=== PATIENT | female | born 1980 | race Caucasian/White ===

== ENCOUNTER → 2017-02-13 | Outpatient (CLI) | payer OTHER ==
[~2017-02-13] MED LIST: FERRTAB2 PO; PREN1CAP33 PO
== END ==
LOC: HPND 08:31
PROVIDERS: ATTEND Obstetrics & Gynecology
DX: O09.522 Supervision of elderly multigravida, second trimester (principal); O09.292 Supervision of pregnancy with other poor reproductive or obstetric history, second trimester
CPT/HCPCS: 76811

== ENCOUNTER 2017-07-03 09:11 | Inpatient (IN) | payer OTHER ==
[~2017-07-03] VITALS: Ht 167.6 cm; Wt 66.0 kg
[2017-07-03] VITALS (19 sets, daily range): BP systolic 100–128; BP diastolic 58–78; PULSE 17–97; RESP 16–20; TEMP 97.6–98.1; O2SAT 99–100
[2017-07-03 10:04] LABS: AUTOMATED NEUTROPHIL # 11.1 TH/MM3 (1.8-7.7); BASOPHIL % 0.4 % (0.0-2.0); EOSINOPHIL % 0.4 % (0.0-4.0); HEMATOCRIT 37.6 % (35.0-46.0); LYMPH % 10.7 % (9.0-44.0); LYMPHOCYTE # 1.4 TH/MM3 (1.0-4.8); MEAN CELL VOLUME 93.5 FL (80.0-100.0); MEAN CORPUSCULAR HEMOGLOBIN 32.3 PG (27.0-34.0); MEAN CORPUSCULAR HGB CONC 34.5 % (32.0-36.0); MEAN PLATELET VOLUME 7.4 FL (7.0-11.0); MONO % 4.9 % (0.0-8.0); MONOCYTE # 0.6 TH/MM3 (0-0.9); NEUT % 83.6 % (16.0-70.0); PLATELET COUNT 223 TH/MM3 (150-450); RED BLOOD COUNT 4.03 MIL/MM3 (4.00-5.30); RED CELL DISTRIBUTION WIDTH 13.6 % (11.6-17.2); WHITE BLOOD COUNT 13.2 TH/MM3 (4.0-11.0)
[2017-07-03 10:10] LABS: BACTERIA, URINE RARE /hpf; BILIRUBIN, URINE NEG (NEG); BLOOD, URINE NEG (NEG); GLUCOSE,URINE NEG (NEG); KETONE, URINE 40 mg/dL (NEG); NITRITE,URINE NEG (NEG); PH, URINE 6.5 (5.0-8.5); SQUAMOUS EPITHELIAL CELL URINE 2 /hpf (0-5); URINE COLOR YELLOW (YELLW/STRAW); URINE LEUKOCYTE ESTERASE NEG (NEG)
[2017-07-03] MEDS ORDERED: CITRIC ACID-SODIUM CITRATE LIQ 30 ML UDC PO SCH (10:15)
[2017-07-03] MEDS ORDERED: ceFAZolin 1,000 MG/NS 100 ML IV SCH ×2 (10:15)
[2017-07-03] MEDS ORDERED: LACTATED RINGER'S 1000 ML IV ONE (10:30)
[2017-07-03] MEDS ORDERED: MORPHINE SULFATE PF 5 MG/10 ML VIAL ONE (10:53)
[2017-07-03] MEDS ORDERED: ACETAMINOPHEN 1000 MG/100 ML 100 ML IV ONE (10:53)
[2017-07-03] MEDS ORDERED: LACTATED RINGER'S 1000 ML IV SCH (11:00)
[2017-07-03] MEDS ORDERED: OXYTOCIN 10 UNIT/ML AMP IV ONE (12:00)
[2017-07-03] MEDS ORDERED: DEXAMETHASONE SOD PHOS 4 MG/ML VIAL IV ONE (12:00)
[2017-07-03] MEDS ORDERED: ONDANSETRON HCL 4 MG/2 ML VIAL IV ONE (12:00)
[2017-07-03] MEDS ORDERED: PHENYLEPH/NS 1000 MCG/10 ML SYR IV ONE (12:00)
--- NOTE | 2017-07-03 12:12 | PD.OB.DELI ---
Procedure Note Section Procedure Performed by Mik Lowe Procedure: Repeat Low Transverse Sec Indication for delivery: Desired elective repeat Informed consent obtained: For anesthesia, For procedure Confirmed correct: Patient, Procedure, Site, Time-out taken Anesthesia: Spinal Medication prior to procedure: As documented in eMAR Monitoring during procedure: Blood pressure monitoring, court monitor, doppler, Pulse oximetry Urinary catheter: Inserted using sterile technique, To dependent drainage Sterile preparation: Duraprep, In usual fashion Position: Supine with wedge to right side, Supine with safety belt applied Operative Features Skin Incision: Pfannenstiel Uterine Incision: Low transverse w/knife / blunt ext Membranes Ruptured: Artificially Presentation: Occiput anterior Delivery date: Jul 03, 2017 Delivery time: 11:23 Delivery of : Uneventful : Male One Minute : 9 Five Minute : 9 Weight: 8/4 Status of infant: Viable Placenta delivered: Intact Medications: Antibiotics, Oxytocin Estimated blood loss: 600cc Procedure tolerated: Well Maternal Condition: Stable Condition: Stable Mik Lowe MD Jul 03, 2017 12:12
[2017-07-03] MEDS ORDERED: OXYTOCIN 30 UNITS-500ML PREMIX 500 ML IV ONE (12:15)
[2017-07-03] MEDS ORDERED: SODIUM CHLORIDE 0.9% FLUSH 10 ML FLUSH IV FLUSH PRN (12:15)
[2017-07-03] MEDS ORDERED: oxyCODONE/ACETAMINOPHEN 5 MG/325 MG TAB PO PRN (12:15)
[2017-07-03] MEDS ORDERED: DOCUSATE SODIUM 50 MG/SENNA 8.6 MG TAB PO PRN (12:15)
[2017-07-03] MEDS ORDERED: ACETAMINOPHEN 325 MG TAB PO PRN (12:15)
[2017-07-03] MEDS ORDERED: SIMETHICONE 80 MG CHEWABLE TAB PO PRN (12:15)
[2017-07-03] MEDS ORDERED: OXYTOCIN 30 UNITS-500ML PREMIX 500 ML ONE ×2 (12:33→13:30)
--- NOTE | 2017-07-03 12:48 | MP ---
cc: Mik Lowe MD DATE OF OPERATION: 07/03/2017 PREOPERATIVE DIAGNOSIS: Term intrauterine gestation, history of gestational diabetes, diet controlled, previous section, for elective repeat section and sterilization with tubal ligation. PROCEDURE: Repeat low transverse section, bilateral tubal ligation and delivery of viable male infant. POSTOPERATIVE DIAGNOSIS: Term intrauterine gestation, history of gestational diabetes, diet controlled, previous section, for elective repeat section and sterilization with tubal ligation. SURGEON: Mik Lowe MD ANESTHESIA: Spinal. ESTIMATED BLOOD LOSS: 600 mL DRAINS: [place] to gravity. OPERATIVE FINDINGS: Male infant delivered from LOT position, clear fluid, Apgars were 9 at one minute and 9 at five. Baby weighed 8 pounds 4 ounces. INDICATION FOR PROCEDURE: Previous section, elected for repeat. Also, was consented and agree for sterilization by tubal ligation. The patient received Ancef 1 g prophylactically. DESCRIPTION OF PROCEDURE: She was taken to the operating room in stable condition and underwent spinal anesthetic without complication. She was prepped and draped. Sequentials were placed on lower extremities for VTE prophylaxis. A [place] was placed under sterile technique. Timeout was conducted, agreed by all present in the room. The patient was stable. heart tones were documented. The patient had previous Pfannenstiel incision that was utilized. Again, she had good pain management with a spinal. The incision was made through the skin down through the subcutaneous layer into the level of the fascia, which was scored sharply in the midline and dissected sharply away from the rectus muscle. Any active bleeding was cauterized with the Bovie. The rectus muscle was in the midline. Peritoneum was identified and opened sharply. The uterus was examined. Vertex presentation was identified. A transverse incision was made in the lower uterine segment without difficulty. Clear fluid was noted. The incision was extended and then the was delivered head first with oropharyngeal suction performed. was delivered in total with good tone and cry. The cord was doubly clamped and cut and the infant was taken to [place] by the nursing staff. Placenta was removed after obtaining a cord blood sample. Uterus was explored. No retained tissue. Good contractions were noted. Blood loss was average. The uterus was closed with a double layer using 0 Monocryl using a running locking suture, followed by a second imbricating suture and then, examination of the fallopian tubes and adnexa was normal. The fallopian tubes were elevated using a Jabier clamp and then opening the mesentery in a hemostatic fashion with the Bovie and then, placing a 2-0 plain suture proximally and distally to excise the mid isthmic portion of the tube. This was taken from close proximity to the cornua down to almost the ampullary portion of each tube. Tubes were labeled right and left. The remaining portion of the tube was cauterized at the luminal surface. No active bleeding or hematoma was incurred. The uterus was returned to its normal anatomic position in the pelvis. Examination of the gutters and pelvis were dry. The lower uterine incision was clean without hematoma formation. Full count was made correct. The peritoneum was then closed with a 2-0 running Monocryl, followed by a second imbricating suture of 2-0 Monocryl in the muscle bellies. The fascia was then closed with 0 Vicryl in a simple running fashion. The skin, after closing the subcutaneous layer with a running suture of 2-0 Monocryl, was closed with 0 Stratafix closing the skin. Steri-Strips were applied over the incision. Dressing was applied. Good result was noted. At the end of the case, final count was correct. The patient was stable. She was taken to recovery on room air. Infant was doing well in the recovery room, as well. MD VENANCIO Cox/AURY , 12:16 PM , 12:46 PM
[2017-07-03] MEDS ORDERED: EPIDURAL-NO SYSTEMIC NARCOTICS PRN ×2 (13:00→16:30)
[2017-07-03] MEDS ORDERED: EPIDURAL-DIPHENHYDRAMINE HCL 50 MG/ML VIAL IV PUSH PRN ×2 (13:00→16:30)
[2017-07-03] MEDS ORDERED: EPIDURAL-DO NOT ADMINISTER ANTICOAGULANTS PRN ×2 (13:00→16:30)
[2017-07-03] MEDS ORDERED: EPIDURAL-DIPHENHYDRAMINE HCL 50 MG CAP PO PRN ×2 (13:00→16:30)
[2017-07-03] MEDS ORDERED: EPIDURAL-NALOXONE HCL 0.4 MG/ML AMP IV PUSH PRN ×2 (13:00→16:30)
[2017-07-03] MEDS ORDERED: METHYLERGONOVINE MALEATE 0.2 MG/ML VIAL ONE (13:16)
[2017-07-03] MEDS: ONDANSETRON HCL 4 MG/2 ML VIAL IV PUSH PRN ×2 (13:46→21:40)
[2017-07-03] MEDS ORDERED: ONDANSETRON HCL 4 MG/2 ML VIAL ONE (13:46)
[2017-07-03] MEDS ORDERED: METHYLERGONOVINE MALEATE 0.2 MG/ML VIAL IM ONE (14:15)
[2017-07-03] MEDS: KETOROLAC TROMETHAMINE 60 MG/2 ML (IM) VIAL IM PRN (15:01)
[2017-07-03] MEDS ORDERED: PROMETHAZINE INJ 25 MG/ML VIAL IM ONE (15:45)
[2017-07-03] MEDS ORDERED: LACTATED RINGER'S 1000 ML INJ 1,000 ML IV SCH (17:09)
[2017-07-03] MEDS: SODIUM CHLORIDE 0.9% FLUSH 10 ML FLUSH IV FLUSH SCH (21:00)
[2017-07-03] MEDS ORDERED: PROMETHAZINE INJ 25 MG/ML VIAL IM PRN (22:00)
[2017-07-03] MEDS ORDERED: OXYTOCIN 30 UNITS-500ML PREMIX 500 ML IV PRN (22:15)
[2017-07-04] VITALS (8 sets, daily range): BP systolic 98–120; BP diastolic 59–82; PULSE 69–89; RESP 16–18; TEMP 97.8–98.2
[2017-07-04] MEDS: KETOROLAC TROMETHAMINE 60 MG/2 ML (IM) VIAL IM PRN (01:14)
--- NOTE | 2017-07-04 08:56 | HHI.OB ---
Subjective Post Operative Day: 1 Objective Vitals/I&O Vital Signs Date Time Temp Pulse Resp B/P (MAP) Pulse Ox O2 Delivery O2 Flow Rate FiO2 07/04/17 06:00 18 07/04/17 04:06 98.2 74 18 117/60 (79) 07/04/17 01:14 18 07/04/17 00:30 18 07/04/17 00:01 98.2 81 17 102/59 (73) 07/03/17 22:50 18 07/03/17 21:46 17 07/03/17 21:34 97.6 75 18 112/73 (86) 07/03/17 17:55 98.1 81 18 121/78 (92) 07/03/17 14:30 98.1 75 18 128/63 (84) 07/03/17 13:45 83 18 123/71 (88) 100 07/03/17 13:30 80 18 118/61 (80) 99 07/03/17 13:15 80 18 100 07/03/17 13:00 72 18 100/59 (73) 99 07/03/17 12:45 75 16 112/59 (76) 99 07/03/17 12:30 79 18 113/58 (76) 99 07/03/17 12:15 98.1 07/03/17 12:15 79 20 100 07/03/17 12:15 110/60 (77) 07/03/17 09:55 94 07/03/17 09:50 97 07/03/17 09:45 90 07/03/17 09:44 87 116/77 (90) 07/03/17 09:40 94 07/03/17 09:35 95 07/03/17 09:30 95 Result Diagram: 07/03/17 0940 Objective Remarks GENERAL: Well-nourished, well-developed patient. CARDIOVASCULAR: Regular rate and rhythm without murmurs, gallops, or rubs. RESPIRATORY: Breath sounds equal bilaterally. No accessory muscle use. ABDOMEN/GI: Abdomen soft, non-tender, bowel sounds present. Incision: dressing Clean, dry and intact. Fundus: Firm, non-tender at umbilicus. GENITOURINARY: Light to moderate bleeding. EXTREMITIES: No cyanosis or edema, non-tender, without signs of DVT. Medications and IVs Current Medications Medications (Trade) Dose Ordered Sig/Lucrecia Route Start Time Stop Time Status Last Admin (Bicitra Liq) 30 ml SPLITTING MACHINE FEEDER PO 07/03/17 10:15 07/06/17 10:14 07/03/17 10:46 Cefazolin Sodium 1000 mg/Sodium Chloride 100 ml @ 200 mls/hr SPLITTING MACHINE FEEDER IV 07/03/17 10:15 07/06/17 10:14 07/03/17 10:46 Lactated Ringer's 1,000 ml @ 100 mls/hr Q10H IV 07/03/17 17:09 07/04/17 13:08 07/03/17 20:39 Oxytocin 500 ml @ 100 mls/hr UNSCH X1 PRN IV 07/03/17 22:15 07/04/17 22:14 (NS Flush) 2 ml BID IV FLUSH 07/03/17 12:15 (NS Flush) 2 ml UNSCH PRN IV FLUSH 07/03/17 12:15 (Mylicon Chew) 80 mg QID PRN PO 07/03/17 12:15 (Tylenol) 650 mg Q6H PRN PO 07/03/17 12:15 (Motrin) 600 mg Q6H PRN PO 07/03/17 12:15 (Toradol Inj) 30 mg Q6H PRN IM 07/03/17 12:15 07/04/17 12:14 07/04/17 01:14 (Percocet 5-325 Mg) 1 tab Q4H PRN PO 07/03/17 12:15 (Percocet 5-325 Mg) 2 tab Q4H PRN PO 07/03/17 12:15 (Mary-Colace) 2 tab Q12H PRN PO 07/03/17 12:15 (M-M-R Ii Inj) 0.5 ml ONCE ONCE SQ 07/04/17 16:00 07/04/17 16:01 (Boostrix Inj) 0.5 ml ONCE ONCE IM 07/04/17 16:00 07/04/17 16:01 07/03/17 21:46 (Zofran Inj) 4 mg Q6H PRN IV PUSH 07/03/17 12:15 07/03/17 21:40 Miscellaneous Information NO SYSTEMIC NARCOTICS TO BE GIVEN FO... UNSCH PRN .XX 07/03/17 13:00 07/04/17 12:59 (Narcan Inj) 0.4 mg UNSCH PRN IV PUSH 07/03/17 13:00 07/04/17 12:59 (Benadryl Inj) 25 mg Q6H PRN IV PUSH 07/03/17 13:00 07/04/17 12:59 (Benadryl) 50 mg Q6H PRN PO 07/03/17 13:00 07/04/17 12:59 Miscellaneous Information ALL NURSING DEPARTMENTS UNSCH PRN .XX 07/03/17 13:00 07/04/17 12:59 Miscellaneous Information NO SYSTEMIC NARCOTICS TO BE GIVEN FO... UNSCH PRN .XX 07/03/17 16:30 07/04/17 16:29 (Narcan Inj) 0.4 mg UNSCH PRN IV PUSH 07/03/17 16:30 07/04/17 16:29 (Benadryl Inj) 25 mg Q6H PRN IV PUSH 07/03/17 16:30 07/04/17 16:29 (Benadryl) 50 mg Q6H PRN PO 07/03/17 16:30 07/04/17 16:29 Miscellaneous Information ALL NURSING DEPARTMENTS UNSCH PRN .XX 07/03/17 16:30 07/04/17 16:29 Assessment/Plan Problem List: (1) delivery delivered ICD Codes: O82 - Encounter for delivery without indication Assessment and Plan POD 1 s/p rltcd and btl cont routine supportive care Dispo- home pod 2 or 3 Shellie Saab MD Jul 04, 2017 08:56
[2017-07-04] MEDS: SODIUM CHLORIDE 0.9% FLUSH 10 ML FLUSH IV FLUSH SCH ×2 (09:35→21:00)
[2017-07-04] MEDS: IBUPROFEN 600 MG TAB PO PRN ×2 (09:55→17:41)
--- NOTE | 2017-07-04 12:40 | MH ---
cc: Mik Lowe MD DATE OF ADMISSION: 07/03/2017 HISTORY OF PRESENT ILLNESS: This is a 37-year-old female, 2, para 1, estimated date of confinement 07/07/2017 based on last menstrual period and first trimester ultrasound. The patient has a history of previous section for breech in 2013, had elected for repeat section with tubal ligation this . The patient's significant issues related to the , the patient history of gestational diabetes, controlled by diet, with normal glycemic control during the . The patient's group B strep status is negative. The patient's blood type is A positive. PAST MEDICAL HISTORY: Denies any systemic or chronic disease. ALLERGIES: SHE HAS NO KNOWN DRUG ALLERGIES. PAST SURGICAL HISTORY: Includes section in 2013. FAMILY HISTORY: Noncontributory. SOCIAL HISTORY: The patient is , fully employed. Denies use of alcohol, tobacco or illicit substances. PHYSICAL EXAMINATION: GENERAL: The patient is a well appearing, well nourished female, in no acute distress. VITAL SIGNS: Stable. Blood pressure is 110/60, pulse and respiratory rate are normal. heart tones are in the 140s. HEENT: Shows no adenopathy. NECK: Supple. Full range of motion. Pupils are equally round and reactive to light. Sclerae are clear, white. LUNGS: Clear in all jack. CARDIOVASCULAR: Regular rhythm, without murmur, rub or gallop. ABDOMEN: Gravid full-term, measuring 40 weeks. EXTREMITIES: Symmetrical. She has 1+ edema. Full range of motion. There is no cyanosis, clubbing, or edema. NEUROLOGIC: Grossly intact, nonfocal. ASSESSMENT AND PLAN: The patient is 39 weeks gestation, previous section for elective repeat section and tubal ligation, history of gestational diabetes, well controlled. Group B strep status negative. Uncomplicated medical history. Mik Lowe MD [facility] [place] [facility] [place] , 05:18 PM , 05:32 PM
[2017-07-04] MEDS: oxyCODONE/ACETAMINOPHEN 5 MG/325 MG TAB PO PRN (12:42)
[2017-07-04] MEDS ORDERED: DIPHTH/TETANUS/ACEL PERTUSSIS (BOOSTER) 0.5 ML VIAL/PFS IM ONE (16:00)
[2017-07-04] MEDS ORDERED: MEASLES, MUMPS, RUBELLA VACCINE 0.5 ML VIAL SQ ONE (16:00)
[2017-07-05] MEDS: IBUPROFEN 600 MG TAB PO PRN ×2 (00:22→07:29)
[2017-07-05 08:00] VITALS: BP 113/70; PULSE 97; RESP 16; TEMP 98.3
--- NOTE | 2017-07-05 10:38 | HHI.OB ---
Subjective Post Operative Day: 2 Remarks doing well but tearful about circumcision otherwise doing well Objective Vitals/I&O Vital Signs Date Time Temp Pulse Resp B/P (MAP) Pulse Ox O2 Delivery O2 Flow Rate FiO2 07/05/17 08:00 98.3 97 16 113/70 (84) 07/04/17 20:50 98.1 86 17 105/63 (77) 07/04/17 16:30 98.1 69 18 120/82 (95) Result Diagram: 07/03/17 0940 Objective Remarks GENERAL: Well-nourished, well-developed patient. CARDIOVASCULAR: Regular rate and rhythm without murmurs, gallops, or rubs. RESPIRATORY: Breath sounds equal bilaterally. No accessory muscle use. ABDOMEN/GI: Abdomen soft, non-tender, bowel sounds present. Incision: dressing Clean, dry and intact. no samir Fundus: Firm, non-tender at umbilicus. GENITOURINARY: Light to moderate bleeding. EXTREMITIES: No cyanosis or edema, non-tender, without signs of DVT. Medications and IVs Current Medications Medications (Trade) Dose Ordered Sig/Lucrecia Route Start Time Stop Time Status Last Admin (Bicitra Liq) 30 ml KITCHEN AIDE PO 07/03/17 10:15 07/06/17 10:14 07/03/17 10:46 Cefazolin Sodium 1000 mg/Sodium Chloride 100 ml @ 200 mls/hr KITCHEN AIDE IV 07/03/17 10:15 07/06/17 10:14 07/03/17 10:46 (NS Flush) 2 ml BID IV FLUSH 07/03/17 12:15 07/04/17 09:35 (NS Flush) 2 ml UNSCH PRN IV FLUSH 07/03/17 12:15 (Mylicon Chew) 80 mg QID PRN PO 07/03/17 12:15 (Tylenol) 650 mg Q6H PRN PO 07/03/17 12:15 (Motrin) 600 mg Q6H PRN PO 07/03/17 12:15 07/05/17 07:29 (Percocet 5-325 Mg) 1 tab Q4H PRN PO 07/03/17 12:15 07/04/17 12:42 (Percocet 5-325 Mg) 2 tab Q4H PRN PO 07/03/17 12:15 (Mary-Colace) 2 tab Q12H PRN PO 07/03/17 12:15 (Zofran Inj) 4 mg Q6H PRN IV PUSH 07/03/17 12:15 07/03/17 21:40 Assessment/Plan Problem List: (1) delivery delivered ICD Codes: O82 - Encounter for delivery without indication Assessment and Plan POD 1 s/p rltcd and btl cont routine supportive care Dispo- home pod 2 or 3 POD 2 Doing well parents counseled and baby circumcised desires discharge today Lou Abarca MD Jul 05, 2017 10:38
[2017-07-05] MEDS ORDERED: OXYC1TAB63 PO (10:41)
--- NOTE | 2017-07-05 10:41 | HHI.DCPOC ---
Discharge Care Plan Report Symptoms to Your Doctor -Temperature above 100.5 degrees -Redness, of incision or excessive or foul smelling drainage -Unusual pain or calf pain -Increased vaginal bleeding -Painful or difficulty urinating -Feelings of extreme sadness or anxiety after 2 weeks Goals to Promote Your Health * To prevent worsening of your condition and complications * To maintain your health at the optimal level Directions to Meet Your Goals Take your medications as prescribed Follow your dietary instruction Follow activity as directed Ensure plenty of rest for recovery Drink fluids for hydration Keep your appointments as scheduled Take your immunizations and boosters as scheduled If your symptoms worsen call your PCP, if no PCP go to Urgent Care Center or Emergency Room Smoking is Dangerous to Your Health. Avoid second hand smoke Call the 24-hour crisis hotline for domestic abuse at Lou Abarca MD Jul 05, 2017 10:41
[2017-07-05] MEDS: oxyCODONE/ACETAMINOPHEN 5 MG/325 MG TAB PO PRN (10:51)
== END 2017-07-05 12:37 | disposition home or self-care (01) | DRG 766 ==
LOC: H2EB 09:11 → H1EA 14:39
PROVIDERS: ADMIT Obstetrics & Gynecology; ATTEND Obstetrics & Gynecology
PROC: 10D00Z1 Extraction of Products of Conception, Low, Open Approach (ICD-10-PCS; principal; 2017-07-03)
PROC: 0UB70ZZ Excision of Bilateral Fallopian Tubes, Open Approach (ICD-10-PCS; 2017-07-03)
DX: O34.211 Maternal care for low transverse scar from previous cesarean delivery (principal); O24.410 Gestational diabetes mellitus in pregnancy, diet controlled; Z37.0 Single live birth; Z3A.39 39 weeks gestation of pregnancy; Z30.2 Encounter for sterilization
CPT/HCPCS: 59025; 80307; 81001; 85025; 86850; 86900; 86901; 88302; 90715; G0481; J0131; J0690; J1100; J1885; J2210; J2274; J2370; J2405; J2590; J7120